=== PATIENT | female | born 1950 | race Caucasian/White ===

== ENCOUNTER → 2021-10-07 09:59 | Outpatient (CLI) | payer MEDICARE, SELFPAY ==
[2021-10-07 19:32] LABS: Alanine Aminotransferase 21 IU/L (<35); Albumin 4.1 g/dL (3.5-5.0); Albumin Globulin Ratio 1.3 (1.0-2.8); Alkaline Phosphatase 108 U/L (38-126); Aspartate Aminotransferase 25 IU/L (14-36); BUN Creatinine Ratio 22.2 (6-22); Bilirubin Total 0.5 mg/dL (0.2-1.3); Blood Urea Nitrogen 16 mg/dL (7-17); Calcium 9.7 mg/dL (8.4-10.2); Carbon Dioxide 25 mmol/L (22-32); Chloride 109 mmol/L (98-107); Cholesterol 227 mg/dL (140-199); Estimated Glomerular Filt Rate > 60.0 mL/min (>60); Globulin 3.2 g/dL (1.7-4.1); Glucose 104 mg/dL (80-110); HDL Cholesterol 68 mg/dL (40-60); HEMOLYSIS < 15 (0-50); LDL Cholesterol Calculated 136 mg/dL (<100); Potassium 4.1 mmol/L (3.4-5.1); Sodium 138 mmol/L (137-145); Total Protein 7.3 g/dL (6.3-8.2); Triglycerides 116 mg/dL (35-150)
[2021-10-07 19:41] LABS: Hemoglobin A1C% w Est Avg Glu 5.2 % (4.0-6.0)
== END ==
PROVIDERS: PCP Family Medicine; Visit Provider Physician Assistant
DX: E78.5 Hyperlipidemia, unspecified (principal); Z13.1 Encounter for screening for diabetes mellitus
CPT/HCPCS: 80053; 80061; 83036

== ENCOUNTER → 2022-10-13 10:40 | Outpatient (CLI) | payer MEDICARE, OTHER, SELFPAY ==
[2022-10-13 20:20] LABS: HEMOLYSIS < 15 (0-50); Iron 113 ug/dL (37-170)
[2022-10-13 20:21] LABS: BUN Creatinine Ratio 25.4 (6-22); Blood Urea Nitrogen 17 mg/dL (7-17); Calcium 9.5 mg/dL (8.4-10.2); Carbon Dioxide 24 mmol/L (22-32); Chloride 100 mmol/L (98-107); Estimated Glomerular Filt Rate > 60 mL/min (>60); Glucose 136 mg/dL (80-110); HEMOLYSIS < 15 (0-50); Sodium 138 mmol/L (137-145)
[2022-10-13 20:34] LABS: Percent Iron Saturation 49 % (15-50); Total Iron Binding Capacity 232 ug/dL (265-497); Transferrin 201 mg/dL (206-381)
[2022-10-13 21:00] LABS: Ferritin 102 ng/mL (11-264)
[2022-10-13 21:14] LABS: Vitamin B12 Reflex MMA if <400 610 pg/mL (239-931)
== END ==
PROVIDERS: PCP Family Medicine; Visit Provider Physician Assistant
DX: C44.90 Unspecified malignant neoplasm of skin, unspecified (principal); D64.9 Anemia, unspecified
CPT/HCPCS: 80048; 82607; 82728; 83540; 83550

== ENCOUNTER 2022-10-27 18:12 | Emergency (ER) | payer MEDICARE, OTHER, SELFPAY ==
[2022-10-27 19:27] VITALS: BP 170/77; PULSE 87; RESP 20; TEMP 36.5; O2SAT 98; BMI 29.8
--- NOTE | 2022-10-27 21:38 | DI.RAD.S_ITS ---
PROCEDURE: XR SHOULDER LT MIN 2V INDICATIONS: post op pain TECHNIQUE: 3 views of the shoulder were acquired. COMPARISON: None available. FINDINGS: Bones: A left glenohumeral joint prosthesis is demonstrated. No fractures or dislocations. There are periprosthetic lucencies along the humeral head component. Visualized ribs appear intact. Soft tissues: No suspicious soft tissue calcifications. IMPRESSION: 1. No fracture or dislocation. 2. Periprosthetic lucencies along the humeral head component. The findings are of indeterminate acuity in the absence of prior comparison images but are suspicious for loosening or infection. Dictated by: Ronald Kitchen M.D. on 10/27/2022 at 23:11 Approved by: Ronald Kitchen M.D. on 10/27/2022 at 23:13
[2022-10-27] MEDS: DOXYCYCLINE HYCLATE 100 MG TABLET PO (22:08)
--- NOTE | 2022-10-27 22:16 | ED_ITS ---
HPI - Skin/Abscess/Foreign Bdy <Sravani Avilez, [facility] - Last Filed: 10/28/22 00:18> General Chief complaint: Skin/Abscess/Foreign Body Stated complaint: infected surgical incision per pt Time Seen by Provider: 10/27/22 21:44 Source: patient Mode of arrival: Ambulatory Limitations: no limitations History of Present Illness HPI narrative: This 71-year-old female presents to the emergency department complaining of redness, tenderness and concern for infection of the surgical wound of her left shoulder 4 weeks status post a left total shoulder replacement with Dr. Michaels. She denies any illness, increased pain, fever, chills, swelling, tenderness or range of motion concern and thinks that it is likely a stitch under the skin trying to get out or other. She states that her postoperative course has been going as expected. She states that everything else is going well and she is concerned that there is something trying to come out of the surface of the wound. Related Data Previous Rx's Medication Instructions Recorded venlafaxine 37.5 mg 37.5 mg PO DAILY #90 caps 08/26/22 capsule,extended release 24 hr venlafaxine 75 mg capsule,extended 75 mg PO DAILY #90 caps 08/26/22 release 24 hr albuterol sulfate 90 mcg/actuation 1 inh inhalation .Q4-5 H PRN 09/23/22 aerosol inhaler (Ventolin HFA) shortness of breath or wheezing #8.5 grams ascorbic acid (vitamin C) 500 mg 500 mg PO DAILY #90 tabs 10/07/22 tablet calcium carbonate 500 mg calcium 500 mg PO DAILY #90 tabs 10/07/22 (1,250 mg) chewable tablet cholecalciferol (vitamin D3) 250 250 mcg PO QWEEK #12 caps 10/07/22 mcg (10,000 unit) capsule ferrous sulfate 325 mg (65 mg 325 mg PO DAILY #90 tabs 10/07/22 iron) tablet zolpidem 10 mg tablet 10 mg PO BEDTIME PRN sleep #15 tabs 10/22/22 doxycycline hyclate 100 mg tablet 100 mg PO BID 10 days #20 tabs 10/27/22 mupirocin 2 % topical ointment 1 applic topical DAILY #22 grams 10/27/22 losartan 50 mg tablet 50 mg PO DAILY #90 tabs 10/28/22 Allergies Allergy/AdvReac Type Severity Reaction Status Date / Time sunflower seed Allergy Severe THROAT Verified 10/28/22 13:43 SWELLING epinephrine Allergy Unknown CAUSES Verified 10/28/22 13:43 PANIC nickel Allergy Unknown ITCHING Verified 10/28/22 13:43 lisinopril AdvReac Mild Nausea Verified 10/28/22 13:43 trazodone AdvReac Mild Diarrhea Verified 10/28/22 13:43 Review of Systems <SACHA Castro - Last Filed: 10/28/22 00:18> Review of Systems ROS Unobtainable: All systems reviewed & are unremarkable except as noted in HPI and below Patient History <SACHA Castro - Last Filed: 10/28/22 00:18> Medical History Allergies (~195) Asthma Elevated glucose General symptom Neck pain Preop testing Primary osteoarthritis of left knee Recurrent sinusitis Screening examination for infectious disease Shoulder pain (~2010) Sleep apnea UTI (urinary tract infection) Visit for suture removal Surgical History Anesthesia History of tonsillectomy (~1969) S/P total knee arthroplasty Family History Father Cancer Mother Diabetes mellitus Hypertension Sister Diabetes mellitus Grandfather Cancer Grandmother Diabetes mellitus Grandmother Cancer Social History Smoking Status: Former smoker Smoking Status: Former smoker Exam <SACHA Castro - Last Filed: 10/28/22 00:18> Narrative Exam Narrative: Reviewed vitals signs and nursing notes. General: cooperative, comfortable, in no acute distress, well groomed, afebrile HEENT: symmetrical facial expressions, moist mucous membranes MSK: moves all extremities, neurovascularly intact, no weakness, normal tone, left anterior shoulder surgical wound with good closure, erythematous and mildly tender with small area of fluctuance [address] No deep fluctuance, full range of motion of shoulder intact without deficit, nontender with joint palpation and resistance. Skin: brisk capillary refill, erythematous area of surgical wound site as above Neuro: normal speech and cognition, A&O x3, ambulatory, clear speech Psych: mental status is grossly normal, congruent mood, normal affect, pleasant and cooperative Initial Vital Signs Initial Vital Signs: Vital Signs Temperature 97.7 F 10/27/22 19:27 Pulse Rate 87 10/27/22 19:27 Respiratory Rate 20 10/27/22 19:27 Blood Pressure 170/77 H 10/27/22 19:27 Pulse Oximetry 98 10/27/22 19:27 Oxygen Delivery Method 10/27/22 19:27 <Elaine Plunkett DO - Last Filed: 11/03/22 08:09> Initial Vital Signs Initial Vital Signs: Vital Signs Temperature 97.7 F 10/27/22 19:27 Pulse Rate 87 10/27/22 19:27 Respiratory Rate 20 10/27/22 19:27 Blood Pressure 170/77 H 10/27/22 19:27 Pulse Oximetry 98 10/27/22 19:27 Oxygen Delivery Method 10/27/22 19:27 Procedures <SACHA Castro - Last Filed: 10/28/22 00:18> Abscess I/D I&D #1: Site: chest Side (if applicable): left Local Anesthetic: lidocaine 2% Amount of anesthesia used (mL): 1 Technique: needle aspiration Amount of fluid expressed (mL): 3 Irrigation: No Packing used?: none Complications: other (none) Course <SACHA Castro - Last Filed: 10/28/22 00:18> Orders Ordered: Discontinued Medications Doxycycline Hyclate (Doxycycline Hyclate 100 Mg Tablet) 100 mg PO NOW ONE Stop: 10/27/22 21:49 Last Admin: 10/27/22 22:08 Dose: 100 mg Documented By: BLOSSOM Vital Signs Vital signs: Vital Signs - 8 hr 10/27/22 19:27 Temperature 97.7 F Pulse Rate 87 Respiratory Rate 20 Blood Pressure 170/77 H Pulse Oximetry 98 Oxygen Delivery Method Room Air <Elaine Plunkett DO - Last Filed: 11/03/22 08:09> Orders Ordered: Discontinued Medications Doxycycline Hyclate (Doxycycline Hyclate 100 Mg Tablet) 100 mg PO NOW ONE Stop: 01/02/23 21:49 Last Admin: 10/27/22 22:08 Dose: 100 mg Documented By: BLOSSOM Vital Signs Vital signs: Vital Signs - 8 hr 10/27/22 19:27 Temperature 97.7 F Pulse Rate 87 Respiratory Rate 20 Blood Pressure 170/77 H Pulse Oximetry 98 Oxygen Delivery Method Room Air MDM - Skin/Abscess/Foreign Bdy <Sravani Avilez, [facility] - Last Filed: 10/28/22 00:18> Imaging Data Extremity x-ray #1: Radiologist's Impression: PROCEDURE:? XR HAND RT MIN 3V ? INDICATIONS:? Cat bite, infected ? TECHNIQUE:? 3 views of the hand(s) acquired.? ? COMPARISON:? None. ? FINDINGS:? ? Bones:? No fractures or dislocations.? Carpal bones are normally aligned.? No suspicious bony lesions.? ? Soft tissues:? No suspicious soft tissue calcifications.? ? ? IMPRESSION:? Soft tissue swelling about the distal 3rd digit without radiopaque foreign body or acute bone finding.? ? ? Dictated by: Ziyad Thompson M.D. on 10/27/2022 at 19:46 ? ? Approved by: Ziyad Thompson M.D. on 10/27/2022 at 19:46 ? [facility] Narrative Medical decision making narrative: This is a 71-year-old female presents to the emergency department status post left total shoulder replacement 4 weeks ago with concern about erythema, tenderness and superficial swelling at the surgical site. She is without any symptoms involving joint, systemic symptoms including fever, chills, nausea, fatigue, or other symptom. This patient presents with initial presentation of local erythema, warmth, swelling concerning for cellulitis vs abscess vs joint infection. Sensitivity/pain to light touch around the erythematous area. Needle aspiration for 2-3 mL of purulence drainage, no bleeding, without crepitus, no foreign body, likely dissolvable suture at the superficial layer, needle hole allow for drainage. No lymphangitic spread visible and no deep fluid pockets or fluctuance concerning for abscess noted. Low concern for osteomyelitis or DVT. No immune compromise, bullae, pain out of proportion, or rapid progression conc erning for necrotizing fasciitis. Patient to be discharged home with doxycycline, wound culture is pending with follow up with their PMD. Shoulder x-ray is negative for subcutaneous gas, no fracture dislocation however it does show periprosthetic lucency along the humeral head component, radiology report states findings are indeterminate in the absence of prior comparison images but are suspicious for loosening or infection. Will send medications to [facility]. Start patient on doxycycline however differential includes Pseudomonas infection, other infection, obtained wound culture drainage underneath surgical site. Patient is appropriate and amenable to discharge home. Vital signs are stable on repeat examination is unremarkable. Patient has been informed of results. Patient has been given strict return to ER precautions for any new or worsening symptoms. Patient understands to follow up closely with outpatient providers as instructed. Patient understands plan and agrees to discharge home. All questions and concerns answered at this time. Discharge Plan Departure Patient Disposition: Home Clinical Impression: Postoperative wound infection Instructions: Surgical Site Infection Activity Restrictions/Additional Instructions: *You have been diagnosed with infections to your left shoulder surgical site. Wound culture was obtained takes approximally 48 hours for that to complete, please use your normal medications as needed for your pain, take this antibiotic and return to the emergency department or call your primary care provider if you have worsening pain, fever, worsening redness or discharge from your wound. This antibiotic should cover most bacteria that can get through the skin but it may not cover for all of them, if you have any worsening at all, please consider coming back in sooner than later. Stay hydrated, call your surgeon and have them request records from [facility] of wound culture. We will call you if this antibiotic does cover which your wound culture grows. Please continue warm compresses to allow for ongoing drainage and the bacteria to escape. *What to do: *Please continue to take your regular medications as directed. [x ] New medication prescriptions sent to your pharmacy: [ [facility]] [ ] New medication written as a paper prescription [ ] No new medications given *Please follow up with your primary care provider in 2-3 days, call for an appointment. Let them know you were seen in the Emergency Department and that we asked that you be seen for follow-up. We will electronically transmit a record of today's note if your PCP is in our system *If you do not have a primary care provider please contact [phone] to establish care with one of the [facility] primary care providers. *Return to Emergency Department if you should have any new, worsening, or concerning symptoms, such as [fever greater than 101F, chills, worsening pain, persistent vomiting or other bothersome symptoms]. Prescriptions: New doxycycline hyclate 100 mg tablet 100 mg PO BID 10 Days Qty: 20 0RF mupirocin 2 % ointment 1 applic topical DAILY Qty: 22 0RF No Action venlafaxine 75 mg capsule,extended release 24hr 75 mg PO DAILY Qty: 90 3RF Rx Instructions: Take 75 mg + 37.5mg for combined dose of 112.5mg daily dose venlafaxine 37.5 mg capsule,extended release 24hr 37.5 mg PO DAILY Qty: 90 3RF Rx Instructions: Take 75 mg + 37.5 mg for combined dose of 112.5 mg daily albuterol sulfate [Ventolin HFA] 90 mcg/actuation HFA aerosol inhaler 1 inh inhalation .Q4-5 H PRN (Reason: shortness of breath or wheezing) Qty: 8.5 3RF ferrous sulfate 325 mg (65 mg iron) tablet 325 mg PO DAILY Qty: 90 0RF Rx Instructions: Take with Vitamin C ascorbic acid (vitamin C) 500 mg tablet 500 mg PO DAILY Qty: 90 0RF Rx Instructions: Take with iron cholecalciferol (vitamin D3) 250 mcg (10,000 unit) capsule 250 mcg PO QWEEK Qty: 12 3RF calcium carbonate 500 mg calcium (1,250 mg) tablet,chewable 500 mg PO DAILY Qty: 90 0RF zolpidem 10 mg tablet 10 mg PO BEDTIME PRN (Reason: sleep) Qty: 15 0RF losartan 50 mg tablet 50 mg PO DAILY Qty: 90 3RF Referrals: Ziyad Michaels MD [Non-Staff] - Joshua Bustamante DO [Primary Care Provider] - <Elaine Plunkett DO - Last Filed: 11/03/22 08:09> Cosign ED Attending Keeature Attestation: I was immediately available in the department for consultation. Documentation has been reviewed.
== END 2022-10-27 22:29 | disposition home or self-care (01) ==
PROVIDERS: Emergency Provider Nurse Practitioner Critical Care Medicine; PCP Family Medicine
DX: T81.41XA Infection following a procedure, superficial incisional surgical site, initial encounter (principal)
CPT/HCPCS: 73030; 87070; 87075; 87077; 87147; 87186; 87205; 99283

== ENCOUNTER → 2022-12-09 10:37 | Outpatient (CLI) | payer MEDICARE, OTHER, SELFPAY ==
[2022-12-09 19:21] LABS: Add Manual Diff / Slide Review NO; Basophils Absolute Auto 0 /uL (0-100); Basophils Percent Auto 0.4 % (0-2); Eosinophils Absolute Auto 200 /uL (0-450); Eosinophils Percent Auto 5.4 % (2-4); Hematocrit 39.2 % (36-46); Hemoglobin 13.1 g/dL (12.0-16.0); Lymphocytes Absolute Auto 1600 /uL (1100-4500); Lymphocytes Percent Auto 35.9 % (25-40); Mean Corpuscular HGB Conc 33.3 % (30-36); Mean Corpuscular Hemoglobin 28.1 PG (26-34); Mean Corpuscular Volume 84.2 fL (80-100); Monocytes Absolute Auto 300 /uL (0-900); Monocytes Percent Auto 7.7 % (3-14); Neutrophils Absolute Auto 2300 /uL (1500-7000); Neutrophils Percent Auto 50.6 % (50-75); Platelet Count 247 X10^3/uL (150-400); Red Blood Cell Count 4.66 X10^6/uL (4.0-5.2); White Blood Cell Count 4.5 X10^3/uL (4.5-11.0)
[2022-12-09 19:46] LABS: Hemoglobin A1C% w Est Avg Glu 5.3 % (4.0-6.0)
== END ==
PROVIDERS: PCP Physician Assistant; Visit Provider Physician Assistant
DX: D50.9 Iron deficiency anemia, unspecified (principal); R73.09 Other abnormal glucose
CPT/HCPCS: 83036; 85025

== ENCOUNTER → 2023-08-24 09:32 | Outpatient (CLI) | payer MEDICARE, OTHER, SELFPAY ==
[2023-08-24 19:58] LABS: Cholesterol 248 mg/dL (140-199); HDL Cholesterol 63 mg/dL (40-60); LDL Cholesterol Calculated 160 mg/dL (<100); Triglycerides 127 mg/dL (35-150)
[2023-08-24 20:22] LABS: TSH w/ Reflex to FT4 0.89 uIU/mL (0.47-4.68)
== END ==
PROVIDERS: PCP Family Medicine; Visit Provider Family Medicine
DX: E78.5 Hyperlipidemia, unspecified (principal); I10 Essential (primary) hypertension; L92.0 Granuloma annulare; E78.2 Mixed hyperlipidemia
CPT/HCPCS: 80061; 84443

== ENCOUNTER → 2023-09-04 14:08 | Outpatient (CLI) | payer MEDICARE, OTHER, SELFPAY ==
--- NOTE | 2023-09-04 14:10 | DI.RAD.S_ITS ---
Bone Density Report Name: NAVEED CHRISTIAN Age: 72 Sex: Female Ethnicity: White Date of : 1950 Indication: postmenopausal; screening for osteoporosis; Referring Provider: TAWANA ALMAZAN Study: Bone densitometry was performed. Exam Date: September 04, 2023 Accession number: [id number] Bone Density: Region BMD T-score Z-score Classification AP Spine(L1, L3, L4) 1.208 1.4 3.8 Normal Femoral Neck (Left) 0.681 -1.5 0.6 Osteopenia Total Hip (Left) 0.802 -1.1 0.6 Osteopenia Femoral Neck (Right) 0.655 -1.8 0.3 Osteopenia Total Hip (Right) 0.791 -1.2 0.5 Osteopenia Total Hip Mean 0.796 -1.2 0.6 Osteopenia World Health Organization criteria for BMD impression classify patients as: Normal (T-score at or above -1.0), Osteopenia (T-score between -1.0 and -2.5), or Osteoporosis (T-score at or below -2.5). 10-year Fracture Risk(1): Major Osteoporotic Fracture 11% Hip Fracture 2.5% Reported Risk Factors: [place] (), Neck BMD=0.655, BMI=30.8 (1) FRAX(R) Version 3.08. Fracture probability calculated for an untreated patient. Fracture probability may be lower if the patient has received treatment. Impression: The patient has low bone mass, based on the Right Femoral Neck T-score. The patient has an estimated ten-year risk of hip fracture of 2.5% and an estimated ten-year risk of major fracture of 11%, based on the WHO FRAX algorithm. Discussion: BONE DENSITY IS LOW AT ONE OR MORE SKELETAL SITES. This patient's lowest T-score is low at one or more skeletal sites. It meets the World Health Organization's (WHO) criteria for low bone mass (T-score between -1.0 and -2.5). The patient's 10-year risk of fracture as calculated by FRAX is less than the threshold where pharmacological therapy is recommended by the National Osteoporosis Foundation (NOF). However, all treatment decisions require clinical judgment and consideration of individual patient factors, including patient preferences, comorbidities, previous drug use, risk factors not captured in the FRAX model (e.g., frailty, falls, vitamin D deficiency, increased bone turnover, interval significant decline in bone density) and possible under or overestimation of fracture risk by FRAX. The patient should follow a healthful lifestyle (good nutrition with adequate calcium and vitamin D, and appropriate weight-bearing exercise). Follow-Up: Consider repeating this study in 2 to 3 years to reassess this patient's status, or sooner if there is some new clinical indication. Reported by: WARREN HUERTA M.D. on 09/04/2023 3:10:00 PM.
== END ==
PROVIDERS: PCP Family Medicine; Referring Provider Family Medicine; Visit Provider Family Medicine
DX: Z78.0 Asymptomatic menopausal state (principal); M85.851 Other specified disorders of bone density and structure, right thigh
CPT/HCPCS: 77080

== ENCOUNTER → 2024-02-02 10:04 | Outpatient (CLI) | payer MEDICARE, OTHER, SELFPAY ==
[2024-02-02 21:13] LABS: Add Manual Diff / Slide Review NO; Basophils Absolute Auto 100 /uL (0-100); Eosinophils Absolute Auto 400 /uL (0-450); Hematocrit 41.1 % (36-46); Hemoglobin 13.8 g/dL (12.0-16.0); Lymphocytes Absolute Auto 1900 /uL (1100-4500); Mean Corpuscular HGB Conc 33.7 % (30-36); Mean Corpuscular Hemoglobin 28.3 PG (26-34); Mean Corpuscular Volume 84.2 fL (80-100); Monocytes Absolute Auto 600 /uL (0-900); Monocytes Percent Auto 8.5 % (3-14); Neutrophils Absolute Auto 4500 /uL (1500-7000); Neutrophils Percent Auto 60.5 % (50-75); Platelet Count 322 X10^3/uL (150-400); Red Blood Cell Count 4.88 X10^6/uL (4.0-5.2); Red Cell Distribution Width 13.8 % (11.6-14.8); White Blood Cell Count 7.4 X10^3/uL (4.5-11.0)
[2024-02-02 22:18] LABS: HEMOLYSIS < 15 (0-50); Iron 101 ug/dL (37-170)
[2024-02-02 22:21] LABS: Alanine Aminotransferase 19 IU/L (<35); Albumin Globulin Ratio 1.1 (1.0-2.8); Alkaline Phosphatase 114 U/L (38-126); Aspartate Aminotransferase 25 IU/L (14-36); BUN Creatinine Ratio 26.3 (6-22); Bilirubin Total 0.5 mg/dL (0.2-1.3); Blood Urea Nitrogen 21 mg/dL (7-17); Calcium 9.6 mg/dL (8.4-10.2); Carbon Dioxide 24 mmol/L (22-32); Chloride 108 mmol/L (98-107); Cholesterol 211 mg/dL (140-199); Estimated Glomerular Filt Rate > 60 mL/min (>60); Globulin 3.6 g/dL (1.7-4.1); Glucose 105 mg/dL (80-110); HDL Cholesterol 69 mg/dL (40-60); HEMOLYSIS < 15 (0-50); LDL Cholesterol Calculated 122 mg/dL (<100); Potassium 4.4 mmol/L (3.4-5.1); Sodium 139 mmol/L (137-145); Total Protein 7.6 g/dL (6.3-8.2); Triglycerides 99 mg/dL (35-150)
[2024-02-02 23:08] LABS: Percent Iron Saturation 44 % (15-50); Total Iron Binding Capacity 228 ug/dL (265-497); Transferrin 182 mg/dL (206-381)
[2024-02-02 23:33] LABS: Ferritin 69 ng/mL (11-264)
== END ==
PROVIDERS: PCP Family Medicine; Visit Provider Family Medicine
DX: I10 Essential (primary) hypertension (principal); D64.9 Anemia, unspecified; E78.2 Mixed hyperlipidemia
CPT/HCPCS: 80053; 80061; 82728; 83540; 83550; 85025

== ENCOUNTER → 2024-05-10 13:07 | Outpatient (CLI) | payer MEDICARE, OTHER, SELFPAY ==
[2024-05-10 21:06] LABS: Add Manual Diff / Slide Review NO; Basophils Absolute Auto 100 /uL (0-100); Basophils Percent Auto 1.9 % (0-2); Eosinophils Absolute Auto 200 /uL (0-450); Eosinophils Percent Auto 3.1 % (2-4); Hematocrit 39.2 % (36-46); Hemoglobin 13.2 g/dL (12.0-16.0); Lymphocytes Absolute Auto 2200 /uL (1100-4500); Lymphocytes Percent Auto 28.6 % (25-40); Mean Corpuscular HGB Conc 33.6 % (30-36); Mean Corpuscular Hemoglobin 28.2 PG (26-34); Mean Corpuscular Volume 83.8 fL (80-100); Monocytes Absolute Auto 700 /uL (0-900); Monocytes Percent Auto 8.6 % (3-14); Neutrophils Absolute Auto 4500 /uL (1500-7000); Neutrophils Percent Auto 57.8 % (50-75); Platelet Count 285 X10^3/uL (150-400); Red Blood Cell Count 4.67 X10^6/uL (4.0-5.2); Red Cell Distribution Width 14.3 % (11.6-14.8); White Blood Cell Count 7.7 X10^3/uL (4.5-11.0)
[2024-05-10 22:21] LABS: HEMOLYSIS < 15 (0-50); Iron 99 ug/dL (37-170)
[2024-05-10 22:31] LABS: Percent Iron Saturation 46 % (15-50); Total Iron Binding Capacity 214 ug/dL (265-497)
[2024-05-10 22:34] LABS: LDL Cholesterol Direct 128 mg/dL (<100)
[2024-05-10 22:58] LABS: Ferritin 51 ng/mL (11-264)
== END ==
PROVIDERS: PCP Family Medicine; Visit Provider Family Medicine
DX: E78.2 Mixed hyperlipidemia (principal); D64.9 Anemia, unspecified
CPT/HCPCS: 82728; 83540; 83550; 83721; 85025

== ENCOUNTER → 2025-03-29 11:00 | Outpatient (CLI) | payer MEDICARE, OTHER, SELFPAY ==
[2025-03-29 19:09] LABS: Add Manual Diff / Slide Review NO; Basophils Absolute Auto 200 /uL (0-100); Basophils Percent Auto 2.5 % (0-2); Eosinophils Absolute Auto 400 /uL (0-450); Eosinophils Percent Auto 6.8 % (2-4); Hematocrit 42.4 % (36-46); Hemoglobin 14.2 g/dL (12.0-16.0); Lymphocytes Absolute Auto 2000 /uL (1100-4500); Lymphocytes Percent Auto 32.1 % (25-40); Mean Corpuscular HGB Conc 33.5 % (30-36); Mean Corpuscular Hemoglobin 28.9 PG (26-34); Mean Corpuscular Volume 86.1 fL (80-100); Monocytes Absolute Auto 600 /uL (0-900); Monocytes Percent Auto 9.7 % (3-14); Neutrophils Absolute Auto 3100 /uL (1500-7000); Neutrophils Percent Auto 48.9 % (50-75); Platelet Count 285 X10^3/uL (150-400); Red Blood Cell Count 4.93 X10^6/uL (4.0-5.2); Red Cell Distribution Width 13.4 % (11.6-14.8); White Blood Cell Count 6.3 X10^3/uL (4.5-11.0)
[2025-03-29 19:38] LABS: HEMOLYSIS < 15 (0-50); Iron 113 ug/dL (37-170)
[2025-03-29 19:42] LABS: Alanine Aminotransferase 24 IU/L (<35); Albumin 4.4 g/dL (3.5-5.0); Albumin Globulin Ratio 1.3 (1.0-2.8); Alkaline Phosphatase 120 U/L (38-126); Aspartate Aminotransferase 33 IU/L (14-36); BUN Creatinine Ratio 17.7 (6-22); Bilirubin Total 0.7 mg/dL (0.2-1.3); Blood Urea Nitrogen 14 mg/dL (7-17); Calcium 9.7 mg/dL (8.4-10.2); Carbon Dioxide 28 mmol/L (22-32); Chloride 102 mmol/L (98-107); Cholesterol 267 mg/dL (140-199); Estimated Glomerular Filt Rate > 60 mL/min (>60); Globulin 3.4 g/dL (1.7-4.1); Glucose 108 mg/dL (70-99); HDL Cholesterol 84 mg/dL (40-60); HEMOLYSIS < 15 (0-50); LDL Cholesterol Calculated 162 mg/dL (<100); Potassium 4.1 mmol/L (3.4-5.1); Sodium 139 mmol/L (137-145); Total Protein 7.8 g/dL (6.3-8.2); Triglycerides 104 mg/dL (35-150)
[2025-03-29 19:57] LABS: Percent Iron Saturation 50 % (15-50); Total Iron Binding Capacity 228 ug/dL (265-497)
[2025-03-29 20:14] LABS: Ferritin 69 ng/mL (11-264)
[2025-03-29 20:22] LABS: Thyroid Stimulating Hormone 1.45 uIU/mL (0.47-4.68)
[2025-03-29 22:33] LABS: Transferrin 213 mg/dL (206-381)
== END ==
PROVIDERS: PCP Family Medicine; Visit Provider Family Medicine
DX: I10 Essential (primary) hypertension (principal); D64.9 Anemia, unspecified; E78.5 Hyperlipidemia, unspecified
CPT/HCPCS: 80053; 80061; 82728; 83540; 83550; 84443; 85025

== ENCOUNTER → 2025-08-21 13:01 | Outpatient (CLI) | payer MEDICARE, OTHER, SELFPAY ==
[2025-08-21 19:28] LABS: Blood Urea Nitrogen 19 mg/dL (7-17); Calcium 9.6 mg/dL (8.4-10.2); Carbon Dioxide 27 mmol/L (22-32); Chloride 104 mmol/L (98-107); Cholesterol 211 mg/dL (140-199); Estimated Glomerular Filt Rate 53 mL/min (>60); Glucose 93 mg/dL (70-99); HDL Cholesterol 70 mg/dL (40-60); HEMOLYSIS 18 (0-50); Potassium 4.6 mmol/L (3.4-5.1); Sodium 139 mmol/L (137-145); Triglycerides 168 mg/dL (35-150)
[2025-08-21 19:38] LABS: Hemoglobin A1C% w Est Avg Glu 5.2 % (4.0-6.0)
[2025-08-21 20:00] LABS: Ferritin 61 ng/mL (11-264)
== END ==
PROVIDERS: PCP Family Medicine; Visit Provider Family Medicine
DX: E78.2 Mixed hyperlipidemia (principal); D50.9 Iron deficiency anemia, unspecified; R73.01 Impaired fasting glucose; I10 Essential (primary) hypertension; E66.09 Other obesity due to excess calories; Z68.30 Body mass index [BMI] 30.0-30.9, adult; Z83.3 Family history of diabetes mellitus
CPT/HCPCS: 80048; 80061; 82728; 83036

== ENCOUNTER → 2025-10-03 08:45 | Outpatient (CLI) | payer MEDICARE, OTHER, SELFPAY ==
--- NOTE | 2025-10-03 08:48 | DI.NM.S_ITS ---
PROCEDURE: NM OLIVA PERF SPECT R&S PHARM Rest and pharmacological stress myocardial perfusion SPECT with gated imaging and ejection fraction RADIOPHARMACEUTICAL: 12.5 mCi Tc-99m tetrafosmin IV at rest and 26.1 mCi Tc-99m tetrafosmin IV at peak effect of pharmacological stress. [id number] was performed. INDICATIONS: [place], CV risks, + FHX PQRS ATTESTATIONS: Measure 322 - Is this imaging test primarily performed on a low-risk surgery patient for preoperative evaluation within 30 days preceding their low-risk non-cardiac surgery? Low-risk surgery is defined as cardiac or myocardial infarction less than 1%, including (but not limited to) endoscopic procedures, superficial procedures, cataract surgery, and excisional breast surgery: Answer: No Measure 323 - Is this imaging test performed primarily for the monitoring of an asymptomatic patient who had percutaneous coronary intervention on the visit date or within 2 years of the visit date? Answer: No Measure 324 - Is this imaging test performed primarily for the initial detection and risk assessment on an asymptomatic, low coronary heart disease patient? Low CHD risk definition = clinicians should consider the maximum number of available patient factors used to estimate risk based on [place] (ATP III criteria), typically age, gender, diabetes, smoking status, and use of blood pressure medication, and integrate age appropriate estimates for missing elements, such as LDL or standard blood pressure. Answer: No TECHNIQUE: Radiopharmaceutical was injected at peak stress test, and also at rest. SPECT images were obtained. SPECT myocardial perfusion images were displayed in short axis, horizontal long axis, and vertical long axis views. Gated images were reviewed using PikiQU[employer] software. COMPARISON: None. CARDIAC STRESS: A pharmacologic stress test was performed under the supervision of an attending staff, using an infusion of 0.4 mg of Lexiscan. Hemodynamic data: There is normal blood pressure and heart rate response to pharmacologic stress. Symptoms: The patient denied anginal chest pain. Aminophylline: None EKG: No diagnostic changes of ischemia; no ectopy. FINDINGS: Raw data: There is good myocardial uptake of radiotracer. No significant motion artifacts. Vcnl-[id number] ratio is 0.28 (normal is less than 0.38 for tetrafosmin tracer). Left ventricle function: Gated images demonstrate normal left ventricular wall thickening. No segmental wall motion abnormalities. No transient ischemic dilation; TID is 0.93 (normal less than 1.3). Left ventricle resting end diastolic volume is 69 mL. Left ventricle stress ejection fraction is 85%; normal range is above 45%. Myocardial perfusion: There is normal distribution of activity in the right and left ventricular myocardium. No fixed or reversible perfusion defects. IMPRESSION: Negative Lexiscan myocardial perfusion scan for ischemia and infarction. Dictated by: Servando Multani M.D. on 10/03/2025 at 16:47 Approved by: Servando Multani M.D. on 10/03/2025 at 16:48
== END ==
LOC: NUCM 08:48
PROVIDERS: PCP Family Medicine; Referring Provider Family Medicine; Visit Provider Family Medicine
DX: I10 Essential (primary) hypertension (principal); R06.09 Other forms of dyspnea; E78.2 Mixed hyperlipidemia
CPT/HCPCS: 78452; 93017; A9502; J2785